=== PATIENT | female | born 1990 | race Hispanic/Latino ===

== ENCOUNTER 2021-09-27 07:27 | Inpatient (IN) | payer BC ==
[2021-09-23 10:00] LABS: Hematocrit 41.5 % (30.3-42.9); Hemoglobin 13.3 gm/dl (10.1-14.3); Mean Corpuscular HGB Conc 32 % (30-34); Mean Corpuscular Volume 86 fl (79-97); Platelet Count 268 K/mm3 (140-440); Red Blood Count 4.82 M/mm3 (3.65-5.03); Red Cell Distribution Width 14.3 % (13.2-15.2)
[2021-09-23 10:03] LABS: Blood Urea Nitrogen 17 mg/dL (7-17); Calcium 9.5 mg/dL (8.4-10.2); Hemolysis Index 4
[2021-09-23 10:08] LABS: BUN/Creatinine Ratio 28
--- NOTE | 2021-09-23 10:32 | Anesthesia Consultation ---
Anesthesia Consult and Med Hx Date of service: 09/27/21 - Airway Anesthetic Teeth Evaluation: Good ROM Head & Neck: Adequate Mental/Hyoid Distance: Adequate Mallampati Class: Class I Intubation Access Assessment: Good - Pre-Operative Health Status ASA Pre-Surgery Classification: ASA2 Proposed Anesthetic Plan: General Nerve Block: prn post-op TAP - Pulmonary Hx Smoking: No Hx Respiratory Symptoms: No (COVID+ 08/29/21; no pulmonary symptoms) - Cardiovascular System Hx Hypertension: No Hx Heart Attack/AMI: No Hx Percutaneous Transluminal Coronary Angioplasty (PTCA): No - Central Nervous System CVA: No - Endocrine Hx Renal Disease: No Hx Liver Disease: No Hx Non-Insulin Dependent Diabetes: No (pre-DM; diet controlled) Hx Thyroid Disease: No - Other Systems Hx Obesity: Yes (BMI 34) - Additional Comments Anesthesia Medical History Comments: No hx anesthetic complications.
[2021-09-23 11:44] LABS: Platelet Estimate Consistent w Auto; RBC Morphology Normal; Total Cells Counted 100
--- NOTE | 2021-09-26 22:08 | History and Physical Report ---
History of Present Illness Date of examination: 09/24/21 Date of admission: 09/27/2021 Chief complaint: I am always in pain and my periods are too heavy History of present illness: Pt is a 30 year old female with a long standing history of chronic pelvic pain and endometriosis along with heavy periods. Pt states that symptoms have gotten worse since her tubal ligation. She has been seeking definitive therapy for quite some time. Past History Past Medical History: No medical history Past Surgical History: cholecystectomy Social history: Medications and Allergies Allergies Allergy/AdvReac Type Severity Reaction Status Date / Time oxycodone Allergy Shortness Verified 08/28/21 12:47 of Breath Home Medications Medication Instructions Recorded Confirmed Last Taken Type Rimegepant Sulfate [Nurtec Odt] 75 mg PO PRN PRN 08/28/21 08/28/21 Unknown History Ubrogepant [Ubrelvy] 100 mg PO PRN PRN 08/28/21 08/28/21 Unknown History Active Meds: Active Medications Acetaminophen (Acetaminophen 500 Mg Tab) 1,000 mg PO PREOP JESSICA Stop: 09/27/21 20:00 Celecoxib (Celecoxib 200 Mg Cap) 200 mg PO PREOP NR Stop: 09/27/21 20:00 Gabapentin (Gabapentin 300 Mg Cap) 300 mg PO PREOP NR Stop: 09/27/21 20:00 Lactated Ringer's (Lactated Ringers) 1,000 mls @ 100 mls/hr IV DIRECT JESSICA Stop: 09/27/21 23:59 Cefazolin Sodium (Ancef/Sterile Water 2 Gm/20 Ml) 2 gm in 20 mls @ 80 mls/hr IV PREOP NR; Protocol Midazolam HCl (Midazolam 2 Mg/2 Ml Inj) 2 mg IV PREOP NR Stop: 09/27/21 20:00 Scopolamine (Scopolamine Transdermal Patch 72 Hr) 1 each TD PREOP NR Stop: 09/27/21 20:00 Review of Systems - Constitutional poor appetite, chronic pain - Genitourinary Genitourinary: dysmenorrhea, pelvic pain, menorrhagia Menstruation: currently menstrual - Psychiatric depression Exam Vital Signs Temp Pulse Resp BP Pulse Ox 98.5 F 88 16 119/73 100 09/23/21 09:10 09/23/21 09:10 09/23/21 09:10 09/23/21 09:10 09/23/21 09:10 - General physical appearance Positive: well developed, well nourished, no distress - Respiratory Positive: normal expansion, normal respiratory effort, clear to auscultation - Cardiovascular Rhythm: regular Heart Sounds: Present: S1 & S2. Absent: rub, click - Abdomen Abdomen: Present: soft, bowel sounds normal. Absent: tender, distended Hernia: none - Genitourinary Female Genitourinary: deferred Results - Labs 09/23/21 09:13 09/23/21 09:13 Assessment and Plan 30 year old female here for laparoscopic hysterectomy. consents have been signed and placed on the chart. Will proceed with surgery as scheduled.
[~2021-09-27 07:27] MED LIST: ACETAMINOPHEN 500 MG TAB PO SCH; CELECOXIB 200 MG CAP PO NR; GABAPENTIN 300 MG CAP PO NR; LACTATED RINGERS 1,000 ML IV SCH; MIDAZOLAM 2 MG/2 ML INJ IV NR; SCOPOLAMINE TRANSDERMAL PATCH 72 HR TD NR; ceFAZolin/Water 2 GM/20 ML 2 GM/20 ML SYRINGE IV NR
--- NOTE | 2021-09-27 08:45 | Anesthesia Day of Surgery ---
Anesthesia Day of Surgery - Day of Surgery Patient Examined: Yes Patient H&P Reviewed: Yes Patient is NPO: Yes
[2021-09-27] MEDS ORDERED: ONDANSETRON 4 MG/2 ML INJ IV PRN ×2 (09:00→14:25)
[2021-09-27] MEDS ORDERED: HYDROmorphone 1 MG/1 ML INJ IV PRN (09:00)
[2021-09-27] MEDS ORDERED: BUPIVACAINE/PF (0.25%) 2.5 MG/ML 10 ML VIAL INFILTRATI ONE ×2 (10:06→12:05)
[2021-09-27] MEDS ORDERED: ONDANSETRON 4 MG/2 ML INJ ONE (10:13)
[2021-09-27] MEDS ORDERED: ROCURONIUM 50 MG/5 ML INJ IV ONE (10:13)
[2021-09-27] MEDS ORDERED: LIDOCAINE MPF (2%) 20 MG/1 ML VIAL 5 ML ONE (10:13)
[2021-09-27] MEDS ORDERED: propofoL 200 MG/20 ML VIAL IV ONE (10:14)
[2021-09-27] MEDS ORDERED: HYDROmorphone 1 MG/1 ML INJ ONE (10:14)
[2021-09-27] MEDS ORDERED: dexAMETHasone 20 MG/5 ML VIAL ONE (10:14)
[2021-09-27] MEDS ORDERED: GLYCOPYRROLATE 0.4 MG/2 ML INJ ONE (12:03)
[2021-09-27] MEDS ORDERED: NEOSTIGMINE 10MG/10 ML INJ MDV ONE (12:03)
[2021-09-27] MEDS ORDERED: LACTATED RINGERS 1,000 ML ONE (12:05)
[2021-09-27] MEDS ORDERED: SODIUM CHLORIDE 0.9% IRR 1,500 ML BOTTLE IR ONE (12:05)
[2021-09-27] MEDS ORDERED: KETOROLAC 30 MG/1 ML INJ ONE (12:06)
--- NOTE | 2021-09-27 12:39 | Operative Report ---
Operative Report Operative Report: Preoperative diagnosis: 1. Chronic pelvic pain 2. Dysmenorrhea 3. Metrorrhagia Postoperative diagnosis: Same with endometriosis and pelvic congestion Procedure:Total laparoscopic hysterectomy Surgeon: Rica Jade Practice Specialist: Dr. Willingham Anesthesia: General EBL: 50 mL IV fluids: 1000 mL Urine output: 235 mL Findings: Normal-appearing ovaries and uterus with above findings and evidence of endometriosis and pelvic congestion worse on the left than on the right. Specimens: Uterus, fallopian tubes, and ovaries Complications: None The patient was properly identified as herself. She was then taken to the OR with IV running and in place. She was given general anesthesia without difficulty. She was placed in a dorsal lithotomy position. She was then prepped and draped in normal sterile fashion. Attention was turned to the patient's vagina. A Wayne catheter was inserted into her bladder. The speculum was then placed the patient's vagina. The cervix was visualized and grasped with tenaculum. The large Vesicare retractor was placed into the patient's uterus and the bulb inflated. The surgeon's gloves were changed and attention turned to the patient's abdomen. A small incision was made in the patient's umbilicus incision a 5 mm trocar was placed. The laparoscope confirmed intra-ab dominal placement. The abdomen was insufflated with CO2 gas to approximately 25 mmHg. 2 additional incisions were made in the right and left lower quadrants. Through both of these incisions 5 mm trochars were placed. Attention was turned to the left adnexa. Attention was then turned to the left pelvic sidewall. the IP ligament was identified. It wa then cauterized and transected. Following this the round ligament was cauterized and transected as well and the bladder flap was initiated on the left. The utero-ovarian artery was also cauterixzed and transected. Attention was then turned to the right sidewall. The IP, round and uteroovarian ligaments were all cauterized and transected. The bladder flap was completed as the right side was taken down to meet the left. The uterine arteries were skeletonized bilaterally and cauterized and transected. AT this point the colpotomy incision was initiated using the J hook. A circumferential incision was made around the cup until the uterus was completely free. Attention was then turned back to the vagina. a weighted speculum was placed in the vagina and the manipulator was moved the the point where the cervix could be seen. The cervix was grasped with a single tooth tenaculum and delivered in one piece through the vagina. The vaginal cuff was then closed in a running locked fashion with 2.0 vicryl. A second look was taken inside the abdomen with the laparosope. There was excellent hemostasis noted. At this point the abdomen was deflated. All instruments were then removed from the abdomen. The incisions were then closed with 4-0 Monocryl. The incisions were also injected with quarter percent Marcaine. The patient tolerated the procedure well she was then awakened and taken recovery in stable condition. Sponge needle and instrument counts were correct 2.
--- NOTE | 2021-09-27 12:42 | Post Operative Note ---
Pre-op diagnosis: Chronic pelvic pain dysmenorrhea and metrorrhagia Post-op diagnosis: same (Same with endometriosis and pelvic congestion) Findings: See above Procedure: Total laparoscopic hysterectomy Anesthesia: GETA Surgeon: FITO DANIELSON Estimated blood loss: 50-100ml Pathology: list (Uterus tubes and cervix) Specimen disposition: to lab Condition: stable Disposition: PACU
--- NOTE | 2021-09-27 14:16 | Post Anesthesia Evaluation ---
- Post Anesthesia Evaluation Patient Participated: Yes Airway Patent: Yes Stable Respiratory Function: Yes Nausea/Vomiting: No Temp > 96.8F: Yes Pain Manageable: Yes Adequeate Hydration: Yes Anesthesia Complications: No
[2021-09-27] MEDS ORDERED: D5W/LACTATED RINGERS 1,000 ML IV SCH (14:25)
[2021-09-27] MEDS ORDERED: IBUPROFEN 800 MG TAB PO PRN (14:25)
[2021-09-27] MEDS ORDERED: ACETAMINOPHEN 325 MG TAB PO PRN (14:25)
[2021-09-27] MEDS: MORPHINE 4 MG/1 ML INJ IV PRN ×2 (15:29→20:16)
[2021-09-27] MEDS: HYDROcodone/ACETAMINOPHEN 5-325 MG TAB PO PRN (17:39)
[2021-09-28] MEDS: MORPHINE 4 MG/1 ML INJ IV PRN (01:11)
[2021-09-28 03:43] LABS: Hematocrit 33.6 % (30.3-42.9); Hemoglobin 10.7 gm/dl (10.1-14.3)
[2021-09-28] MEDS: HYDROcodone/ACETAMINOPHEN 5-325 MG TAB PO PRN ×2 (10:10→17:00)
[2021-09-28] MEDS ORDERED: FLU VACC QUAD 2021-22(6MOS UP)/PF 60 MCG/0.5 ML SYRINGE IM ONE (12:00)
--- NOTE | 2021-09-28 16:27 | Progress Note ---
Assessment and Plan POD 1 s/p lap hysterectomy. Doing well. Plan for discharge on today with follow up in office and po meds. Subjective - Subjective Date of service: 09/28/21 Interval history: Pt is a 30 year old female with a long standing history of chronic pelvic pain and endometriosis along with heavy periods. Pt states that symptoms have gotten worse since her tubal ligation. She has been seeking definitive therapy for quite some time. Patient reports: appetite normal, voiding normally, pain well controlled, flatus, ambulating normally [place]: doing well Objective - Vital Signs Latest vital signs: Vital Signs Temp Pulse Resp BP Pulse Ox 09/28/21 13:06 98.1 F 63 18 104/53 98 09/28/21 08:00 18 98 09/28/21 07:22 98.6 F 82 18 95/59 98 09/28/21 04:26 98.2 F 65 20 105/64 99 09/27/21 23:39 98.2 F 67 20 109/58 99 09/27/21 20:10 98 09/27/21 19:50 98.2 F 63 20 91/53 99 Intake and Output 09/28/21 09/28/21 09/28/21 06:59 14:59 22:59 Intake Total 240 720 Output Total 900 550 Balance -660 170 Intake: Oral 240 720 Output: Urine 900 550 Indwelling Catheter 900 Void 450 Other: Total, Intake Amount 240 360 Total, Output Amount 900 350 Voiding Method Toilet # Voids 1 Void 1 - Exam Breasts: Present: deferred Cardiovascular: Present: Regular rate, Normal S1, Normal S2 Lungs: Present: Clear to auscultation, Normal air movement Abdomen: Present: normal appearance, soft, normal bowel sounds Vulva: both: normal
--- NOTE | 2021-09-28 16:31 | Discharge Summary ---
Providers - Providers Date of Admission: 09/27/21 07:27 Date of discharge: 09/28/21 Attending physician: FITO DANIELSON Primary care physician: ORLIN MUNSON MD Hospitalization Reason for admission: other Procedure: other (hysterectomy) Procedure details: see op report Incision: normal, dry, intact Hospital course: unremarkable Condition at discharge: Good Disposition: 01 HOME / SELF CARE / HOMELESS Plan - Discharge Medications Prescriptions: Ibuprofen [Motrin] 800 mg PO Q8HR PRN #40 tablet PRN Reason: Pain, Moderate (4-6) HYDROcodone/APAP 5-325 [Taft 5-325 mg TAB] 2 each PO Q6H PRN #30 tablet PRN Reason: Pain, Moderate (4-6) - Provider Discharge Summary Activity: routine, no sex for 6 weeks, no heavy lifting 4 weeks, no strenuous exercise Diet: routine Instructions: routine Additional instructions: [] Smoking cessation referral if applicable(refer to patient education folder for contact #) [] Refer to [facility] Booklet Call your doctor immediately for: * Fever > 100.5 * Heavy vaginal bleeding ( >1 pad per hour) * Severe persistent headache * Shortness of breath * Reddened, hot, painful area to leg or breast * Drainage or odor from incision. * Keep incision clean and dry at all times and follow doctor's instructions regarding bathing/showering - Follow up plan Follow up: FITO DANIELSON MD [Staff Physician] - 14 Days
[2021-09-28 17:09] VITALS: BP 104/63
== END 2021-09-28 18:26 | disposition home or self-care (01) | DRG 743 ==
LOC: 3A 07:27 → OB 13:13
PROVIDERS: ADMIT Obstetrics & Gynecology; ATTEND Obstetrics & Gynecology
PROC: 0UT94ZZ Resection of Uterus, Percutaneous Endoscopic Approach (ICD-10-PCS; principal; 2021-09-27)
PROC: 0UB74ZZ Excision of Bilateral Fallopian Tubes, Percutaneous Endoscopic Approach (ICD-10-PCS; 2021-09-27)
DX: N80.0 Endometriosis of uterus (principal); N94.6 Dysmenorrhea, unspecified; E66.9 Obesity, unspecified; Z68.34 Body mass index [BMI] 34.0-34.9, adult; Z90.49 Acquired absence of other specified parts of digestive tract; Z20.822 Contact with and (suspected) exposure to COVID-19
CPT/HCPCS: 36415; 80048; 84703; 85007; 85014; 85018; 85025; 86850; 86900; 86901; 88307; G0378; J1815; J3490; J7060; J7120; J1100; J1170; J1885; J2250; J2270; J2405; J2704; J2710; J7121; U0003